=== PATIENT | female | born 1995 | race Caucasian/White ===

== ENCOUNTER 2023-11-10 13:12 | Emergency (ER) | payer SELFPAY ==
[2023-11-10 13:12] VITALS: BP 139/79; PULSE 87; RESP 14; TEMP 35.7; O2SAT 100; BMI 41.3
--- NOTE | 2023-11-10 14:20 | ED.VIS.LOWEX ---
HPI History of Present Illness Chief Complaint: Lower Extremity Injury Informant: patient Narrative Narrative: Patient states her left ankle has been hurting for about a month. She has been able to bear weight but it hurts. She states it has been so long she cannot remember if she had an acute injury or not, but states she is very clumsy and stumbles all the time, I have been on crutches 14 different times. The pain is all lateral. It is not in her calf or foot. She denies any numbness or tingling. She has had some mild swelling. She does well if she is not bearing weight, or moving the ankle. [facility] Medical History Asthma Home Medications ?Medication ?Instructions ?Recorded ?Last Taken ?Type ibuprofen 600 mg tablet 600 mg PO Q8H PRN PRN pain #15 11/10/23 Unknown Rx TABLETS propranolol 20 mg tablet 20 mg PO BID PRN PRN anxiety 11/10/23 Unknown History Allergy/AdvReac Type Severity Reaction Status Date / Time No Known Allergies Allergy Verified 11/10/23 13:12 Social History Smoking Status: Current every day smoker tobacco type: cigarettes ROS ROS ED Constitutional Constitutional ED: Denies chills or fever(s) Musculoskeletal Musculoskeletal: Reports extremity pain; Denies neck pain Integumentary Denies Abrasions, rash or wounds Neurologic Neurologic: Denies paresthesias or weakness EXAM Physical Exam Const Vital Signs: 11/10/23 13:12 11/10/23 15:45 Temperature 96.3 F L 97.8 F Temperature Source Temporal Pulse Rate 87 80 Respiratory Rate 14 16 Blood Pressure 139/79 H 135/69 H Blood Pressure Mean 99 91 Pulse Ox 100 100 Oxygen Delivery Method Room Air Positive well nourished and well developed General Appearance ED: well developed and NAD Neck full ROM and supple Back/Spine normal ROM and normal to inspection Extremity Extremity Narrative: Liver range of motion left ankle due to pain. Tenderness to the left lateral malleolus as well as the soft tissues anterior/distal. Nontender base of fifth metatarsal, proximal fibula, medial malleolus. No pain with lateral force on the ankle, but with inverting the foot, she has significant reproduction of her pain laterally. Neuro oriented x3, no focal motor deficits and no sensory deficits noted Sensorium / Orientation: alert Psych mental status grossly normal and thought process normal Skin no wounds Rashes: no rashes MDM MDM MDM Narrative Medical decision making narrative: Exam is all consistent with a lateral ankle sprain. Given the duration of pain I think x-rays are indicated. Three-view x-ray series of the left ankle and my interpretation is negative for acute fracture. Patient will be given Aircast offered crutches refer to orthopedics if she goes another 2 to 3 weeks without improvement. Radiography Diagnostic Testing: Clinical Impression(s) from Imaging Studies Ankle X-Ray 11/10/23 14:23 IMPRESSION: Normal x-ray examination of the ankle. Electronically Signed: Tani Mcclendon MD at 14:33 EDT Reading Location ID and State: [facility] / [place] , Service support , Discharge Plan Triage Chief Complaint: Lower Extremity Injury ED Provider: Antelmo Kemp Dx/Rx/DC Orders Clinical Impression: Sprain of ankle, left Instructions: ED Ankle Sprain (Adult) Prescriptions: New ibuprofen 600 mg tablet 600 mg PO Q8H PRN PRN (Reason: pain) Qty: 15 0RF No Action propranolol 20 mg tablet 20 mg PO BID PRN PRN (Reason: anxiety) Primary Care Provider: Lauren Leon Referrals: Gregory Cortes DO [Med Staff - Active Staff] - 10-14 Days if not better (or first available orthopaedic provider) Lauren Leon [Primary Care Provider] - Print Language: Maldivian Disposition Disposition: Home, Self Care Discharge Date/Time: 11/10/23 16:28
--- NOTE | 2023-11-10 14:23 | RAD_ITS ---
STUDY: X-RAY - LEFT ANKLE REASON FOR EXAM: Female, 28 years old. Lateral ankle pain for one month. No known injury. TECHNIQUE: 3 view(s) of the ankle. COMPARISON: None. FINDINGS: Normal visualized distal tibia and fibula. Normal medial and lateral malleoli. Normal tibiotalar articulation and ankle mortise. Normal visualized talus and calcaneus. The visualized subtalar, talonavicular, calcaneocuboid and tarsal articulations are normal. The soft tissue structures are unremarkable. RAD/Ankle min 3 Views IMPRESSION: Normal x-ray examination of the ankle. Electronically Signed: Tani Mcclendon MD at 14:33 EDT ,
[2023-11-10 15:45] VITALS: BP 135/69; PULSE 80; RESP 16; TEMP 36.6; O2SAT 100
== END 2023-11-10 16:28 | disposition home or self-care (01) ==
PROVIDERS: Emergency Provider Emergency Medicine; Visit Provider Emergency Medicine
DX: S93.402A Sprain of unspecified ligament of left ankle, initial encounter (principal); F17.210 Nicotine dependence, cigarettes, uncomplicated
CPT/HCPCS: 73610; 99283